=== PATIENT | female | born 1940 | race Caucasian/White ===

== ENCOUNTER → 2018-01-11 | Outpatient (CLI) | payer MEDICARE | END | disposition home or self-care (01) | LOC: RAH 14:56 | PROVIDERS: ATTEND Internal Medicine | DX: Z12.31 Encounter for screening mammogram for malignant neoplasm of breast (principal) | CPT/HCPCS: 77067 ==

== ENCOUNTER 2018-11-25 12:27 | Emergency (ER) | payer MEDICARE | END 2018-11-25 13:01 | disposition home or self-care (01) | LOC: EDH 12:27 | DX: L01.00 Impetigo, unspecified (principal); E78.5 Hyperlipidemia, unspecified; Z90.710 Acquired absence of both cervix and uterus; Z91.041 Radiographic dye allergy status; Z98.890 Other specified postprocedural states; Z90.49 Acquired absence of other specified parts of digestive tract ==

== ENCOUNTER → 2020-05-01 | Outpatient (CLI) | payer OTHER | END | disposition home or self-care (01) | LOC: OIH 16:35 | PROVIDERS: ATTEND Internal Medicine Nephrology | DX: Z13.6 Encounter for screening for cardiovascular disorders (principal); I51.5 Myocardial degeneration | CPT/HCPCS: 75571 ==

== ENCOUNTER → 2020-09-09 | Outpatient (CLI) | payer MEDICARE ==
[~2020-09-09] MED LIST: REGADENOSON 0.4 MG/5 ML PF SYG IVP SCH
== END | disposition home or self-care (01) ==
LOC: SHCH 09:06
PROVIDERS: ATTEND Internal Medicine Cardiovascular Disease
DX: R06.09 Other forms of dyspnea (principal); R07.9 Chest pain, unspecified
CPT/HCPCS: 78452; 93017; 96374; A9500 ×2; J2785

== ENCOUNTER → 2021-10-09 | Outpatient (CLI) | payer MEDICARE | END | disposition home or self-care (01) | LOC: RAH 16:27 | PROVIDERS: ATTEND Physician Assistant | DX: M47.812 Spondylosis without myelopathy or radiculopathy, cervical region (principal); M54.2 Cervicalgia; M43.12 Spondylolisthesis, cervical region; Z88.8 Allergy status to other drugs, medicaments and biological substances | CPT/HCPCS: 72050 ==

== ENCOUNTER → 2023-06-28 | Outpatient (CLI) | payer MEDICARE | END | disposition home or self-care (01) | LOC: RAH 15:44 | PROVIDERS: ATTEND Physician Assistant | DX: M20.12 Hallux valgus (acquired), left foot (principal); M79.672 Pain in left foot; Z88.8 Allergy status to other drugs, medicaments and biological substances | CPT/HCPCS: 73630 ==

== ENCOUNTER 2024-02-04 04:53 | Emergency (ER) | payer MEDICARE, BC ==
[~2024-02-04] VITALS: Ht 157.5 cm; Wt 65.3 kg
[2024-02-04] MEDS: DiphenhydrAMINE HCL 50 MG/ML VIAL IV ONE (06:40)
[2024-02-04] MEDS: ketOROlac 15MG/ML VIAL (15MG/ML) IV ONE (06:40)
[2024-02-04] MEDS: PROCHLORPERAZINE 10MG/2ML INJ IV ONE (06:40)
--- NOTE | 2024-02-04 06:49 | HMCIMG ---
CT HEAD/BRAIN W/O CONTRAST CLINICAL HISTORY: headache COMPARISON: None TECHNIQUE: Multiple sequential axial images of the head were obtained from the base of the skull through vertex. CT was performed with one or more of the following dose reduction techniques: automated exposure control, adjustment of the mA and/or kV according to patient size, or use of iterative reconstruction technique FINDINGS: There is advanced atrophy and mild small vessel disease. 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 The mastoid air cells are orbits are unremarkable. Note is made of a large air-fluid level in the right sphenoid sinus. The calvarium is intact. IMPRESSION: Acute sphenoid sinusitis
--- NOTE | 2024-02-04 06:54 | ERN ---
General Chief Complaint: Headache Stated Complaint: MIGRAINE HEADACHE, PAIN TO BACK OF NECK AND HEAD Time Seen by MD: 05:21 History of Present Illness Initial Comments Ms. Hill is a very pleasant 83-year-old female comes in today with a chief complaint of migraine headaches. Patient reports that migraine started last night and woke her up. She has not been able to have any relief. Allergies: Coded Allergies: iodine (Unverified Allergy, Unknown, 11/25/18) potassium (Unverified Allergy, Unknown, 09/08/20) Past Medical History Past Medical History: Other Medical History Other: SCOLIOSIS Past Surgical History: None ROS Dictation Constitutional: Negative for fever,chills, and weight loss Eyes: Negative for injury, pain,redness, and discharge ENT: Negative for injury,pain or swelling Cardiovascular: Negative for chest pain, palpitations, and edema Respiratory: Negative for shortness of breath, cough, and wheezing, Abdomen/GI: Negative for abdominal pain, nausea, vomiting, diarrhea, and constipation Back: Negative for injury and pain : Negative for injury, bleeding and discharge MS/Extremity: Negative for injury and deformity Skin: Negative for rash, and discoloration Neuro: Positive for headache Psych: Negative for suicide ideation, homicidal ideation, and hallucinations Physical Exam Physical Exam Dictation General: awake, alert, NAD Head/Face: Normocephalic, atraumatic Eyes: PERRL, EOMI, ENT: oral cavity clear, Neck: Trachea midline, supple, Cardiovascular: RRR, normal S1/S2, No MRGs, no JVD Respiratory: CTAB, no respiratory distress Abdomen: Soft, non-tender, non-distended Skin: Warm, dry, normal turgor, no rash MS/Extremity: Pulses equal, no cyanosis, Neuro: COAx4, GCS 15, strength 5/5, CN 2-12 intact, Psych: Normal behavior, mood, and affect normal Results EKG/XRAY/US/CT/MRI CT Scan Comment Institution : [facility] Accession No. 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 [place], [place] [id number] IMAGING REPORT Signed PATIENT: JOSIAH RUBIO MR#: [id number] : 1940 SEX: F AGE: 83 LOCATION: [facility] ORDER 0 STATUS: REG REPORT#: [id number] SERVICE 8 REASON: headache ORDERING PHYSICIAN: JASPAL JUDD MD PROCEDURE: HEAD WO - CT HEAD/BRAIN W/O CONTRAST CT HEAD/BRAIN W/O CONTRAST CLINICAL HISTORY: headache COMPARISON: None TECHNIQUE: Multiple sequential axial images of the head were obtained from the base of the skull through vertex. CT was performed with one or more of the following dose reduction techniques: automated exposure control, adjustment of the mA and/or kV according to patient size, or use of iterative reconstruction technique FINDINGS: There is advanced atrophy and mild small vessel disease. 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 The mastoid air cells are orbits are unremarkable. Note is made of a large air-fluid level in the right sphenoid sinus. The calvarium is intact. IMPRESSION: Acute sphenoid sinusitis DICTATED BY: DINA LAST DO DATE: 02/04/24645 ELECTRONICALLY SIGNED BY: DINA LAST DO DATE: 02/04/24648 [facility] Progress note by Dr. Rowan Lim. I assumed care of this patient at 7:00 a.m., pending CT report. I have reviewed the nursing notes, vital signs and available diagnostic studies. I have reviewed the charting completed by my colleague. The CT came back showing some sinusitis and sinus inflammation but no evidence of an acute intracranial process. The patient does not have any associated neurologic symptoms and has had complete relief of pain with symptomatic therapy. She is not running a fever. Daughter is at the bedside and comfortable taking her. She is stable for discharge. At the time of discharge, the vital signs are within acceptable limits. Repeat examination: Alert lucid female interactive and comfortable Patient has been able to take oral liquids. The discharge treatment plan includes general recommendations and symptomatic care. Tylenol is recommended for pain Incidental findings discussed: Mild sinusitis Questions were invited and answered in layman's terms. I have emphasized my follow-up recommendations and reviewed ED return precautions. I have answered any questions in layman's terms. The patient understands that they will have to arrange for out-patient follow-up for recheck of today's condition. The patient is stable and appropriate for discharge from the ED. This dictation was prepared using [employer] voice recognition software. Occasional voice recognition errors may occur. When identified, these errors have been corrected. While every attempt is made to correct errors during dictation, errors may still exist. ED Course Orders Procedure Category Date Status Time Ct Head/Brain W/O CT 02/04/24 Resulted Contrast 05:49 Prochlorperazine PHA 02/04/24 Complete 10mg/2ml Inj 06:00 Diphenhydramine Hcl PHA 02/04/24 Complete (Benadryl Inj) 06:00 Ketorolac PHA 02/04/24 Complete Tromethamine 15mg/Ml 06:00 Current Medications Medications (Trade) Dose Ordered Sig/[place] Route PRN Reason Start Time Stop Time Status Last Admin Dose Admin Diphenhydramine HCl (BENAdryl INJ) 25 mg ONCE ONCE IV 02/04/24 06:00 02/04/24 06:01 DC 02/04/24 06:40 Ketorolac Tromethamine (toRADol) 15 mg ONCE ONCE IV 02/04/24 06:00 02/04/24 06:01 DC 02/04/24 06:40 Prochlorperazine Edisylate (Compazine 10mg/ 2ml Inj) 10 mg ONCE ONCE IV 02/04/24 06:00 02/04/24 06:01 DC 02/04/24 06:40 Vital Signs Date Time Temp Pulse Resp B/P (MAP) Pulse Ox O2 Delivery O2 Flow Rate FiO2 02/04/24 07:16 97.9 61 18 153/60 98 Room Air* 0 21 02/04/24 05:37 97.9 59 18 144/71 97 Room Air* 0 21 02/04/24 04:55 97.7 64 16 143/68 96 Room Air 0 DX & DISP Disposition: Discharge Decision to Admit Date: Feb 04, 2024 Decision to Admit Time: 08:51 Departure Impression: Primary Impression: Acute cephalgia resolved Additional Impression: CT finding of sinusitis-asymptomatic Condition: Stable Additional Instructions: CT scan does not show any signs of acute problems inside your brain. There was some sinus congestion noted. Use plain Tylenol for pain. Return to the emergency department for fever, vomiting, stiff neck, change in vision or any localizing neurologic symptoms. If you are not back to normal follow up with your family physician next week Referrals: JEN JERRY MD (PCP) Time of Disposition: 08:53 JASPAL JUDD MD Feb 04, 2024 06:54 ROWAN LIM MD Feb 04, 2024 08:53
[2024-02-04 08:54] VITALS: BP 159/71; PULSE 68; RESP 18; TEMP 97.9; O2SAT 97
== END 2024-02-04 09:04 | disposition home or self-care (01) ==
LOC: EDH 04:53
DX: G43.909 Migraine, unspecified, not intractable, without status migrainosus (principal); J32.9 Chronic sinusitis, unspecified; Z88.8 Allergy status to other drugs, medicaments and biological substances; Z91.041 Radiographic dye allergy status
CPT/HCPCS: 99285; 96374; 70450; 96375; J1200; J0780; J1885